=== PATIENT | male | born 1945 | race Caucasian/White ===

== ENCOUNTER 2023-03-21 08:40 | Emergency (ER) | payer OTHER ==
--- NOTE | 2023-03-21 09:28 | RAD REPORT ---
EXAM DESCRIPTION: CT - CTHCSPWOC - 03/21/2023 9:10 am CLINICAL HISTORY: Trauma, head and neck injury. TRAUMA COMPARISON: None TECHNIQUE: Axial 5 mm thick images of the head were obtained. Axial 2 mm thick images of the cervical spine were obtained with sagittal and coronal reconstruction images generated and reviewed. All CT scans are performed using dose optimization technique as appropriate and may include automated exposure control or mA/KV adjustment according to patient size. FINDINGS: CT HEAD WITHOUT CONTRAST: No acute hemorrhage, hydrocephalus or extra-axial collection is identified.No areas of brain edema or midline shift. Cerebral atrophy. Mild chronic small vessel ischemic changes. The paranasal sinuses and mastoids are clear.The calvarium is intact. CT CERVICAL SPINE WITHOUT CONTRAST: No fracture or subluxation.No prevertebral soft tissues swelling is identified. Apical scarring. Mild cervical spondylosis including neural foraminal narrowing bilaterally at C4-5 and C5-6. IMPRESSION: No acute intracranial or cervical spine findings.
--- NOTE | 2023-03-21 09:39 | RAD REPORT ---
EXAM DESCRIPTION: RAD - Shoulder Right 2 View - 03/21/2023 9:31 am CLINICAL HISTORY: Pain;Smash injury COMPARISON: Head C Spine Mpr Wo Con dated 03/21/2023 FINDINGS/IMPRESSION: No acute fracture. No malalignment. Right AC joint deformity which is chronic. Mild right glenohumeral joint degenerative changes.
[2023-03-21] MEDS ORDERED: HYDROCODONE/APAP 5/325 MG TAB ONE (09:45)
[2023-03-21] MEDS ORDERED: DERMABOND SKIN ADHESIVE TOP ONE (10:13)
--- NOTE | 2023-03-21 10:15 | ER ---
Nurse's Notes [facility] Name: Kaleb Boateng Age: 77 yrs Sex: Male : 1945 Arrival Date: 03/21/2023 Time: 08:40 Bed 11 Private MD: Diagnosis: Fall on same level from slipping, tripping and stumbling with subsequent striking against object;Unspecified injury of head, initial encounter;Laceration without foreign body of unspecified part of head;Contusion of right shoulder Presentation: 03/21 08:56 Chief complaint: Patient states: "I was driving home to [place] and we stopped for the aa5 dog to pee and my dog ended up tripping me and I fell down onto asphalt". Pt reports falling onto right side and hitting right lutheran, dry blood noted to right lutheran. Pt c/o pain to right shoulder. Reports taking Eliquis. Denies LOC, denies vomiting. 08:56 Coronavirus screen: At this time, the client does not indicate any symptoms associated aa5 with coronavirus-19. Ebola Screen: Patient denies travel to an Ebola-affected area in the 21 days before illness onset. Initial Sepsis Screen: Does the patient meet any 2 criteria? No. Patient's initial sepsis screen is negative. Does the patient have a suspected source of infection? No. Patient's initial sepsis screen is negative. Risk Assessment: Do you want to hurt yourself or someone else? Patient reports no desire to harm self or others. Onset of symptoms was March 21, 2023 at 07:30. 08:56 Acuity: DEBORAH 2 aa5 08:56 Method Of Arrival: Wheelchair aa5 Historical: - Allergies: 08:56 PENICILLINS; aa5 - Home Meds: 08:56 Lisinopril Oral [Active]; Eliquis oral [Active]; aa5 - PMHx: 08:56 Atrial fibrillation; Hypertensive disorder; aa5 - PSHx: 08:56 heart ablation; aa5 - Immunization history:: Adult Immunizations unknown. - Social history:: Smoking status: unknown. Screenin:56 [facility] ED Fall Risk Assessment (Adult) History of falling in the last 3 months, aa5 including since admission Yes- single mechanical fall (1 pt) Confusion or Disorientation No (0 pts) Intoxicated or Sedated No (0 pts) Impaired Gait No (0 pts) Mobility Assist Device Used No (0 pt) Altered Elimination No (0 pt) Score/Fall Risk Level 0 - 2 = Low Risk. Abuse screen: Denies threats or abuse. Nutritional screening: No deficits noted. Tuberculosis screening: No symptoms or risk factors identified. Assessment: 08:56 General: Appears uncomfortable, Behavior is calm, cooperative. Pain: Complains of pain aa5 in anterior aspect of right shoulder Pain currently is 8 out of 10 on a pain scale. Pain began post fall. Neuro: Level of Consciousness is awake, alert, obeys commands, Oriented to person, place, time, situation. Cardiovascular: Patient's skin is warm and dry. Respiratory: Airway is patent Respiratory effort is even, unlabored, Respiratory pattern is regular, symmetrical. GI: No signs and/or symptoms were reported involving the gastrointestinal system. : No signs and/or symptoms were reported regarding the genitourinary system. EENT: No signs and/or symptoms were reported regarding the EENT system. Derm: Skin is pink, warm \\T\\ dry. Possible laceration/abrasion noted to right lutheran, hard to visualize at this time due to dry blood. Musculoskeletal: Reports pain in anterior aspect of right shoulder. 09:06 Reassessment: Pt to CT via wheelchair .. aa5 09:40 Reassessment: Cleaned dry blood, laceration measuring approximately 1cm long noted to aa5 right eyebrow, bruising noted around surrounding area, mild bleeding after cleaning laceration was noted and gauze with tape applied at this time. E[employer] LEAD was notified of wound care completed. . 09:40 Reassessment: Patient is alert, oriented x 3, equal unlabored respirations, skin aa5 warm/dry/pink. Vital Signs: 08:56 BP 142 / 82; Pulse 59; Resp 16 S; Temp 97.8(TE); Pulse Ox 100% on R/A; Weight 86.18 kg aa5 (R); Height 6 ft. 2 in. (R); 08:56 Body Mass Index 24.39 (86.18 kg, 187.96 cm) aa5 ED Course: 08:43 Patient arrived in ED. am2 08:43 [facility]C [facility] snw 08:43 Nick Ramon MD is Attending Physician. snw 08:56 Arm band placed on. aa5 08:56 Patient has correct armband on for positive identification. Bed in low position. Call aa5 light in reach. Side rails up X2. 09:08 Triage completed. aa5 09:11 CT Head C Spine In Process Unspecified. EDMS 09:32 Shoulder Right (2 View) XRAY In Process Unspecified. EDMS 10:08 Sling applied to right arm. aa5 10:10 Assist provider with laceration repair on right eyebrow that was 2.5 cm. or less using aa5 Dermabond. Set up tray. Performed by Sindy PIPER Patient tolerated well. 10:30 Payton Byrd, RN is Primary Nurse. iw 10:30 Patient did not have IV access during this emergency room visit. iw Administered Medications: 09:32 Drug: HYDROcodone-acetaminophen PO 5 mg-325 mg 1 tabs Route: PO; aa5 10:09 Follow up: Response: No adverse reaction aa5 Medication: 10:30 VIS not applicable for this client. iw Outcome: 10:14 Discharge ordered by . snw 10:30 Discharged to home ambulatory. iw 10:30 Condition: good 10:30 Discharge instructions given to patient, Instructed on discharge instructions, follow up and referral plans. medication usage, Demonstrated understanding of instructions, follow-up care, medications, Prescriptions given X 1. 10:30 Patient left the ED. iw Signatures: Dispatcher [employer] EDMT Sindy Mireles FNP-C GRE[employer] WORKER-Csnw Payton Byrd RN RN iw Ingrid Quiroga RN RN aa5 Cori Up am2 Corrections: (The following items were deleted from the chart) 09:09 08:56 Allergies: No Known Allergies; aa5 aa5 09:09 08:56 Chief complaint: Patient states: "I was driving home to [place] and we stopped aa5 for the dog to pee and my dog ended up tripping me and I fell down onto asphalt". Pt reports falling onto right side and hitting right lutheran, dry blood noted to right lutheran. Pt c/o pain to right shoulder. Reports taking Eliquis. aa5
--- NOTE | 2023-03-21 10:16 | EDPHYS ---
Physician Documentation [facility] Name: Kaleb Boateng Age: 77 yrs Sex: Male : 1945 Arrival Date: 03/21/2023 Time: 08:40 Bed 11 Private MD: ED Physician Nick Ramon HPI: 03/21 09:07 This 77 yrs old Male presents to ER via Unassigned with complaints of Fall Injury, snw Shoulder Pain, Facial Injury. 09:07 Details of fall: The patient fell from an upright position, while standing. Onset: The snw symptoms/episode began/occurred suddenly, just prior to arrival. Associated injuries: The patient sustained injury to the head, contusion, laceration, pain, tenderness. Severity of symptoms: At their worst the symptoms were moderate. The patient has not experienced similar symptoms in the past. Pt on Eliquis. Historical: - Allergies: 08:56 PENICILLINS; aa5 - Home Meds: 08:56 Lisinopril Oral [Active]; Eliquis oral [Active]; aa5 - PMHx: 08:56 Atrial fibrillation; Hypertensive disorder; aa5 - PSHx: 08:56 heart ablation; aa5 - Immunization history:: Adult Immunizations unknown. - Social history:: Smoking status: unknown. ROS: 09:06 Constitutional: Negative for fever, chills, and weight loss, Eyes: Negative for injury, snw pain, redness, and discharge, ENT: Negative for injury, pain, and discharge, Neck: Negative for injury, pain, and swelling, Cardiovascular: Negative for chest pain, palpitations, and edema, Respiratory: Negative for shortness of breath, cough, wheezing, and pleuritic chest pain, Abdomen/GI: Negative for abdominal pain, nausea, vomiting, diarrhea, and constipation, Back: Negative for injury and pain, : Negative for injury, bleeding, discharge, and swelling, Skin: Negative for injury, rash, and discoloration. 09:06 MS/extremity: Positive for injury or acute deformity, decreased range of motion, pain, of the anterior aspect of right shoulder. 09:06 Neuro: Positive for pt states he saw stars but no LOC or vomiting. + right eyebrow lac. Exam: 09:05 Constitutional: This is a well developed, well nourished patient who is awake, alert, snw and in no acute distress. Eyes: Pupils equal round and reactive to light, extra-ocular motions intact. Lids and lashes normal. Conjunctiva and sclera are non-icteric and not injected. Cornea within normal limits. Periorbital areas with no swelling, redness, or edema. ENT: Nares patent. No nasal discharge, no septal abnormalities noted. Tympanic membranes are normal and external auditory canals are clear. Oropharynx with no redness, swelling, or masses, exudates, or evidence of obstruction, uvula midline. Mucous membranes moist. Neck: Trachea midline, no thyromegaly or masses palpated, and no cervical lymphadenopathy. Supple, full range of motion without nuchal rigidity, or vertebral point tenderness. No Meningismus. Chest/axilla: Normal chest wall appearance and motion. Nontender with no deformity. No lesions are appreciated. Cardiovascular: Regular rate and rhythm with a normal S1 and S2. No gallops, murmurs, or rubs. Normal PMI, no JVD. No pulse deficits. Respiratory: Lungs have equal breath sounds bilaterally, clear to auscultation and percussion. No rales, rhonchi or wheezes noted. No increased work of breathing, no retractions or nasal flaring. Abdomen/GI: Soft, non-tender, with normal bowel sounds. No distension or tympany. No guarding or rebound. No evidence of tenderness throughout. Back: No spinal tenderness. No costovertebral tenderness. Full range of motion. Skin: Warm, dry with normal turgor. Normal color with no rashes, no lesions, and no evidence of cellulitis. Neuro: Awake and alert, GCS 15, oriented to person, place, time, and situation. Cranial nerves II-XII grossly intact. Motor strength 5/5 in all extremities. Sensory grossly intact. Cerebellar exam normal. Normal gait. Psych: Awake, alert, with orientation to person, place and time. Behavior, mood, and affect are within normal limits. 09:05 Head/face: Noted is contusion, ecchymosis, a laceration(s), that is superficial, of the right eye, swelling. 09:05 Musculoskeletal/extremity: Extremities: grossly normal except: noted in the anterior aspect of right shoulder: contusion, decreased ROM, tenderness. Vital Signs: 08:56 BP 142 / 82; Pulse 59; Resp 16 S; Temp 97.8(TE); Pulse Ox 100% on R/A; Weight 86.18 kg aa5 (R); Height 6 ft. 2 in. (R); 08:56 Body Mass Index 24.39 (86.18 kg, 187.96 cm) aa5 Laceration: 10:12 Wound Repair of 2.5cm ( 1.0in ) subcutaneous laceration to right eye. Linear shaped.. snw Distal neuro/vascular/tendon intact. Anesthesia: Local anesthetic administered with 0 mls of 1% lidocaine. Wound prep: Moderate cleansing with hibiclenz by nurse. Skin closed with thin layer Adhesive skin closure using Dermabond. Dressed with none. Patient tolerated well. MDM: 08:50 Patient medically screened. snw 09:24 Differential diagnosis: abrasion, closed head injury, fracture, laceration, ICH. Data snw reviewed: vital signs, nurses notes, radiologic studies, CT scan, plain films. Independent interpretation of the following test(s) in the Emergency Department X-Ray: My interpretation is +lateral clavicle fracture. CT Scan: My interpretation is no ICH. Counseling: I had a detailed discussion with the patient and/or guardian regarding: the historical points, exam findings, and any diagnostic results supporting the discharge/admit diagnosis, the presence of at least one elevated blood pressure reading (>120/80) during this emergency department visit, radiology results, the need for outpatient follow up, for definitive care, to return to the emergency department if symptoms worsen or persist or if there are any questions or concerns that arise at home. Special discussion: I have referred the patient to see his PCP for further evaluation of high blood pressure. Based on the patient's history, exam and DX evaluation, there is no indication for emergent intervention or inpatient TX. It is understood by the patient/guardian that if the SXs persist or worsen they need to return immediately for re-evaluation. Based on the history and exam findings, there is no indication for further emergent testing or inpatient evaluation. I discussed with the patient/guardian the need to see the orthopedic surgeon for further evaluation of the symptoms. I discussed with the patient/guardian the need to see the primary care provider for further evaluation of the symptoms. ED course: Pt up to date on tetanus. 03/21 08:57 Order name: CT Head C Spine; Complete Time: 09:46 snw 03/21 08:57 Order name: Shoulder Right (2 View) XRAY; Complete Time: 09:46 snw 03/21 09:22 Order name: Wound Care: hibiclens; Complete Time: 09:56 snw 03/21 09:24 Order name: Sling; Complete Time: 10:09 snw 03/21 10:10 Order name: Dermabond; Complete Time: 10:10 aa5 Administered Medications: 09:32 Drug: HYDROcodone-acetaminophen PO 5 mg-325 mg 1 tabs Route: PO; aa5 10:09 Follow up: Response: No adverse reaction aa5 Disposition: 10:44 I reviewed the patient's care provided by the Advanced Practice Provider and agree with [id number] the diagnosis and treatment plan. Disposition Summary: 03/21/23 10:14 Discharge Ordered Location: Home snw Condition: Stable snw Diagnosis - Fall on same level from slipping, tripping and stumbling with subsequent striking snw against object - Unspecified injury of head, initial encounter snw - Laceration without foreign body of unspecified part of head snw - Contusion of right shoulder snw Followup: snw - With: Emergency Department - When: As needed - Reason: Worsening of condition Followup: snw - With: Private Physician - When: 5 - 6 days - Reason: Recheck today's complaints, Continuance of care, Re-evaluation by your physician Discharge Instructions: - Discharge Summary Sheet snw - Tissue Adhesive Wound Care snw - Head Injury, Adult snw - Facial Laceration snw - Shoulder Pain snw - Shoulder Range of Motion Exercises snw Forms: - Medication Reconciliation Form snw - Thank You Letter snw - Antibiotic Education snw - Prescription Opioid Use snw Prescriptions: - orphenadrine citrate 100 mg Oral Tablet Sustained Release - take 1 tablet by ORAL route 2 times per day As needed; 20 tablet; Refills: 0, snw Product Selection Permitted Signatures: Dispatcher [employer] Sindy Delcid FNP-C FNP-Csnw Payton Byrd RN RN iw Ingrid Quiroga RN RN aa5 Nick Ramon MD MD [email or web address] Corrections: (The following items were deleted from the chart) 09:09 08:56 Allergies: No Known Allergies; aa5 aa5
[2023-03-21 10:36] VITALS: BP 142/82; TEMP 97.8; O2SAT 100
== END 2023-03-21 10:30 | disposition home or self-care (01) ==
LOC: ER 08:40
PROC: 0HQ1XZZ Repair Face Skin, External Approach (ICD-10-PCS; principal; 2023-03-21)
DX: S01.81XA Laceration without foreign body of other part of head, initial encounter (principal); S40.011A Contusion of right shoulder, initial encounter; W01.10XA Fall on same level from slipping, tripping and stumbling with subsequent striking against unspecified object, initial encounter; I10 Essential (primary) hypertension; I48.91 Unspecified atrial fibrillation; Z79.01 Long term (current) use of anticoagulants; Z88.0 Allergy status to penicillin
CPT/HCPCS: 70450; 72125; 99284